=== PATIENT | female | born 1955 | race Caucasian/White ===

== ENCOUNTER → 2017-04-08 | Outpatient (CLI) | payer BC ==
--- NOTE | ~2017-04-08 | MY30 ---
[facility] A Service of [facility] RADIOLOGY TEXT RESULTS PATIENT: SHERRI LO LOCATION: [facility] : 53 UNIT #: [id number] AGE: [address]: Marbella Mistry APRN SEX: F ORDER DR: [id number] [address] [address] [id number] O MR#: [id number] Acc #: [id number] NAME: SHERRI LO : 1955 SEX: F STUDY DATE/TIME: 04/08/2017 13:58 UNIT: [facility] ROOM: STUDY DESCRIPTION: MY SCREEN PAVAN BILAT DIGITAL Attending Physician: Marbella Mistry A.P.R.N. Referring Physician: Marbella Mistry A.P.R.N. Ordering Physician: Marbella Mistry A.P.R.N. Primary Care Physician: Marbella Mistry A.P.R.N. MEDICAL IMAGING REPORT This report is preliminary unless electronic signature is present. EXAM Digital screening mammogram, 04/08/2017, [facility]. HISTORY 62-year-old woman, no risk elevation. Annual screen. COMPARISON Mammograms 02/06/2010. FINDINGS Digital imaging of each breast was completed utilizing a two-view examination of each breast in craniocaudal and mediolateral-oblique projections. Review and interpretation of digital mammograms include a second review in conjunction with FDA-approved CAD device. There is a normal parenchymal presentation bilaterally consistent with the patient's age. There are no breast masses imaged and no parenchymal asymmetry is visualized. There are no suspicious microcalcifications and I see no focal architectural disturbance. IMPRESSION Negative screening digital mammogram. One-year followup recommended. Patients over the age of 40 are entered into a reminder system with target due date for the next mammogram. A result letter will also be sent to the patient. BIRADS: 1 Negative. Dictated by... Luis Canales M.D. [facility] A Service of [facility] RADIOLOGY TEXT RESULTS PATIENT: [facility]ERRI LO [facility] [id number] : 53 UNIT #: [id number] AGE: [address]: Marbella Mistry APRN SEX: F ORDER DR: THIS IS AN ELECTRONICALLY VERIFIED REPORT Luis Canales M.D. at 04/10/2017 12:02 PM [place] TD: 04/08/2017 16:20 JOB #: [id number] MEDICAL IMAGING REPORT Page 1 of 1
== END | disposition home or self-care (01) ==
LOC: SMAM 13:10
DX: Z12.31 Encounter for screening mammogram for malignant neoplasm of breast (principal)
CPT/HCPCS: G0202